=== PATIENT | male | born 1950 | race African-American/Black ===

== ENCOUNTER 2019-11-16 13:45 | Emergency (ER) | payer OTHER ==
[2019-11-16] MEDS ORDERED: ceFAZolin 2 GM in SODIUM CHLORIDE 0.9% 100ML 100 ML IV STA (13:56)
--- NOTE | 2019-11-16 13:57 | ED Physician Documentation ---
PD HPI UPPER EXT INJURY - Stated complaint Stated Complaint: LT ARM CHAINSAW LAC - History obtained from History obtained from: Patient - History of Present Illness Location: Left (Right-handed gentleman who is up-to-date on tetanus accidentally cut his left forearm with a chainsaw at a friend's house just prior to arrival while working outside. Last oral intake was around 7 AM. Pain is severe.) Review of Systems Ten Systems: 10 systems reviewed and negative Constitutional: reports: Reviewed and negative Cardiac: reports: Reviewed and negative Respiratory: reports: Reviewed and negative PD PAST MEDICAL HISTORY - Past Medical History Past Medical History: Yes Cardiovascular: Hypertension - Allergies Allergies/Adverse Reactions: Allergies Allergy/AdvReac Type Severity Reaction Status Date / Time meperidine [From Demerol] Allergy Rash Verified 11/16/19 14:18 - Living Situation Living Arrangement: reports: At home - Social History Does the pt smoke?: No Does the pt have substance abuse?: No - Family History Family history: reports: Non contributory PD ED PE NORMAL - Vitals Vital signs reviewed: Yes - General General: Alert and oriented X 3, Other (He appears to be in severe pain) - HEENT HEENT: PERRL, EOMI - Neck Neck: Supple, no meningeal sign, No bony TTP - Cardiac Cardiac: RRR, No murmur - Respiratory Respiratory: No respiratory distress, Clear bilaterally - Abdomen Abdomen: Non tender - Back Back: No CVA TTP, No spinal TTP - Derm Derm: Normal color, Warm and dry - Extremities Extremities: Other (There is a gaping 4 cm deep laceration to the medial side of the left antecubital fossa with pulsatile bleeding when the tourniquet is down. With the tourniquet down I do not Appreciate a radial pulse, but there is pulsatile waveform in the left hand with pulse oximetry. He has diminished but not absent sensation in the ulnar nerve distribution, median and radial are normal.) - Neuro Neuro: Alert and oriented X 3, Normal speech Results - Vitals Vitals: Vital Signs - 24 hr 11/16/19 11/16/19 11/16/19 14:05 14:17 14:23 Temperature 37.0 C Heart Rate 81 80 82 Respiratory 29 H 26 H 22 Rate Blood Pressure 173/92 H 204/116 H 210/139 H O2 Saturation 98 2 L 98 Oxygen O2 Source Nasal cannula - Labs Labs: Laboratory Tests 11/16/19 14:05 WBC 6.6 RBC 5.30 Hgb 14.2 Hct 42.1 MCV 79.4 L MCH 26.8 L MCHC 33.7 RDW 14.5 Plt Count 193 MPV 10.5 Neut # (Auto) 3.0 Lymph # (Auto) 2.7 [place] # (Auto) 0.6 Eos # (Auto) 0.3 Baso # (Auto) 0.0 Absolute Nucleated RBC 0.00 Nucleated RBC % 0.0 PD MEDICAL DECISION MAKING - ED course ED course: This is a 69-year-old gentleman who presents with a left forearm chainsaw injury with an apparent transection of the brachial nerve, but some collateral blood flow to the hand, the hand has normal cap refill and is not dusky. I spoke with Dr. Chandler after arrival, who recommends transfer to a tertiary facility. He was administered Ancef, 2 g IV and fentanyl for the pain. Accepted by Dr. Fuentes, hand surgery to [facility] at 1422, cobras were completed and patient is agreeable. Departure - Departure Disposition: 02 Transfer Acute Care Hosp Clinical Impression: Arm laceration Qualifiers: Encounter type: initial encounter Laterality: left Qualified Code(s): S41.112A - Laceration without foreign body of left upper arm, initial encounter Brachial artery laceration Qualifiers: Encounter type: initial encounter Laterality: left Qualified Code(s): S45.112A - Laceration of brachial artery, left side, initial encounter Condition: Serious
[2019-11-16] MEDS ORDERED: fentaNYL 100 MCG/2 ML VIAL IVP STA (14:03)
[2019-11-16 14:12] LABS: BASOPHILS % (AUTO) 0.2 %; EOSINOPHILS # (AUTO) 0.3 10^3/uL (0.0-0.7); EOSINOPHILS % (AUTO) 4.1 %; HGB - HEMOGLOBIN 14.2 g/dL (14.0-18.0); LYMPHOCYTES # (AUTO) 2.7 10^3/uL (1.5-3.5); MEAN CORPUSCULAR HEMOGLOBIN 26.8 pg (27.0-31.0); MEAN CORPUSCULAR HGB CONC 33.7 g/dL (32.0-36.0); MEAN CORPUSCULAR VOLUME 79.4 fL (80.0-94.0); MEAN PLATELET VOLUME 10.5 fL (7.4-11.4); MONOCYTES # (AUTO) 0.6 10^3/uL (0.0-1.0); MONOCYTES % (AUTO) 9.3 %; NEUTROPHILS % (AUTO) 44.8 %; PLT - PLATELET COUNT 193 10^3/uL (130-450); RED CELL DISTRIBUTION WIDTH 14.5 % (12.0-15.0); WHITE BLOOD COUNT 6.6 x10^3/uL (4.8-10.8)
[2019-11-16 14:24] VITALS: BP 210/139
[2019-11-16] MEDS ORDERED: TETANUS/DIPHTHERIA/PERTUSSIS 0.5 ML SYRINGE IM ONE (14:25)
[2019-11-16 14:41] LABS: CALCIUM 8.3 mg/dL (8.5-10.3); CREATININE 1.1 mg/dL (0.6-1.2)
== END 2019-11-16 14:42 | disposition short-term general hospital (02) ==
LOC: ED 13:45
DX: S51.812A Laceration without foreign body of left forearm, initial encounter (principal); S45.112A Laceration of brachial artery, left side, initial encounter; W29.3XXA Contact with powered garden and outdoor hand tools and machinery, initial encounter; Y93.89 Activity, other specified; Y92.007 Garden or yard of unspecified non-institutional (private) residence as the place of occurrence of the external cause; Z23 Encounter for immunization; I10 Essential (primary) hypertension
CPT/HCPCS: 36415; 80048; 85025; 86850; 86900; 86901; 90471; 96365; 96375; 99285